=== PATIENT | female | born 1995 | race Caucasian/White ===

== ENCOUNTER 2017-03-27 23:14 | Emergency (ER) | payer MEDICAID, OTHER ==
[~2017-03-27] VITALS: Ht 167.6 cm; Wt 49.9 kg
[2017-03-27 23:25] VITALS: BP 126/71
--- NOTE | 2017-03-27 23:33 | NUR ---
TO LOBBY.SHARON, VSYobani, A/W BED, ERMLovely NOTED
[2017-03-27 23:34] VITALS: BP 126/71
--- NOTE | 2017-03-28 00:26 | NUR ---
PT TKAEN TO OF2
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
--- NOTE | 2017-03-28 01:25 | NUR ---
Patient discharged with v/s stable. Written and verbal after care instructions given and explained. Patient verbalized understanding. Ambulatory with steady gait. All questions addressed prior to discharge. Advised to follow up with PMD. DISCHARGED BY DR ALVARADO
== END 2017-03-28 02:15 | disposition home or self-care (01) ==
LOC: MED 23:14
DX: F41.9 Anxiety disorder, unspecified (principal); R06.4 Hyperventilation
CPT/HCPCS: 99284